=== PATIENT | male | born 1990 | race African-American/Black ===

== ENCOUNTER 2017-03-01 02:59 | Emergency (ER) | payer SELFPAY ==
[~2017-03-01] VITALS: Ht 177.8 cm; Wt 73.5 kg
[2017-03-01 04:13] VITALS: BP 120/82
== END 2017-03-01 05:04 | disposition home or self-care (01) ==
LOC: ER 03:01
DX: S62.396A Other fracture of fifth metacarpal bone, right hand, initial encounter for closed fracture (principal); F12.10 Cannabis abuse, uncomplicated; W22.8XXA Striking against or struck by other objects, initial encounter; Y93.89 Activity, other specified; Y92.89 Other specified places as the place of occurrence of the external cause; Y99.8 Other external cause status
CPT/HCPCS: 73130